=== PATIENT | female | born 1965 | race African-American/Black ===

== ENCOUNTER 2022-04-20 07:27 | Emergency (ER) | payer MEDICARE, OTHER ==
[2022-04-20] MEDS ORDERED: Sodium Chloride 0.9% 1,000 ML ONE (08:18)
[2022-04-20] MEDS ORDERED: Ondansetron PF 4 MG/2 ML Vial ONE (08:18)
[2022-04-20] MEDS ORDERED: Morphine 4 MG/ML VIAL ONE ×2 (08:18→11:53)
[2022-04-20 09:25] LABS: #Basophils 0.1 thou/uL (0.0-0.2); #Lymphocytes 0.8 thou/uL (1.20-3.40); #Monocytes 0.3 thou/uL (0.11-0.59); %Basophils 0.8 % (0.0-1.0); %Eosinophils 0.1 % (0.0-10.0); %Lymphocytes 9.7 % (21.0-51.0); %Monocytes 3.1 % (0.0-10.0); %Neutrophils 86.3 % (42.0-75.0); Mean Corpuscular HGB CONC 30.3 g/dL (32.0-36.0); Mean Corpuscular Hemoglobin 24.8 pg (27.0-31.0); Mean Corpuscular Volume 81.6 fl (78.0-98.0); Mean Platelet Volume 7.8 fL (7.4-10.4); Platelet Count 345 10x3/uL (130-400); RBC Distribution Width 16.1 % (11.5-14.5); Red Blood Cell (RBC) Count 5.25 mill/uL (4.20-5.40); White Blood Cell (WBC) Count 8.1 10x3/uL (4.8-10.8)
[2022-04-20 09:31] LABS: ALT (SGPT) 355 U/L (8-55); AST (SGOT) 947 U/L (5-34); Albumin 4.2 g/dL (3.5-5.0); Alkaline Phosphatase 349 U/L (40-110); Anion Gap 17 mmol/L (10-20); BUN (Urea Nitrogen) 11 mg/dL (9.8-20.1); Bilirubin, Total 1.7 mg/dL (0.2-1.2); Calc. Creatinine Clearance 0 mL/min (70-130); Calcium 9.8 mg/dL (7.8-10.44); Carbon Dioxide 24 mmol/L (22-29); Chloride 98 mmol/L (98-107); Estimated GFR 81; Glucose 144 mg/dL (70-105); Lipase 22 U/L (8-78); Potassium 3.9 mmol/L (3.5-5.1); Protein, Total 8.2 g/dL (6.0-8.3); Sodium 135 mmol/L (136-145)
[2022-04-20 09:32] LABS: Anisocytosis SLIGHT = 6-15 cells (100X) (0-5/hpf); Platelet Morphology Comment Appears Adequate
[2022-04-20 12:40] LABS: SARS-CoV-2 NAA Rapid Test Not Detected (NotDetected)
[2022-04-20] MEDS ORDERED: Piperacillin/Tazobactam 3.375 GM VIAL ONE (14:50)
[2022-04-20] MEDS ORDERED: Sodium Chloride 0.9% 100 ML ONE (14:50)
[2022-04-20] MEDS ORDERED: Acetaminophen 500 MG TAB ONE (14:50)
== END 2022-04-20 15:27 | disposition short-term general hospital (02) ==
LOC: MADERS 07:27
DX: A41.9 Sepsis, unspecified organism (principal); K80.10 Calculus of gallbladder with chronic cholecystitis without obstruction; R74.01 Elevation of levels of liver transaminase levels; R74.02 Elevation of levels of lactic acid dehydrogenase [LDH]; Z20.822 Contact with and (suspected) exposure to COVID-19
CPT/HCPCS: 71045; 74176; 76705; 80053; 83605; 83690; 84484; 85025; 87040; 87077; 87149 ×2; 93005; U0002; 36415; 36556; 87186; 96372; 96374; J2270; J2405; J2543; J3490; J7050